=== PATIENT | female | born 1960 | race Caucasian/White ===

== ENCOUNTER 2016-12-02 07:07 | Emergency (ER) | payer OTHER ==
[~2016-12-02 07:07] MED LIST: ALBUTEROL 0.5ML INH; ALBUTEROL17 GM; ALBUTEROL17 GM INH; ALPRAZOLAM PO; AMBIEN; BLOOD PRESSURE MED; BUSPAR PO; CYANOCOBAL1000 MCG/M INJ; DARVOCET-N 1001 TA1 PO; DARVOCET-N 1001 TAB PO; FLEXERIL10 MG PO; FOLIC ACID PO; HEARTBURN RELIE75 MG; IBUPROFEN800 MG PO; IRON1 TA1; KLONOPIN0.5 MG PO; LORTAB 5/500 TA1 TA1; MEDROL4 MG/DOSE- PO; NAPROSYN250 M1 PO; NASONEX17 GM; NIFEREX-150150 MG PO; NORCO 5/325 TAB1 TAB; PAIN MED; RANITIDINE HCL150 M1 PO; ULTRAM PO; VISTARIL50 MG PO; VOLTAREN75 MG; VOLTAREN75 MG PO; ZANTAC PO; [UNRECOGNIZED DRUG - OTHER]; [UNRECOGNIZED DRUG - OTHER] PO
== END 2016-12-02 07:54 | disposition home or self-care (01) ==
LOC: SED 07:07
DX: M54.5 Low back pain (principal); G89.29 Other chronic pain; I10 Essential (primary) hypertension; J44.9 Chronic obstructive pulmonary disease, unspecified; F17.200 Nicotine dependence, unspecified, uncomplicated; Z90.49 Acquired absence of other specified parts of digestive tract; Z90.710 Acquired absence of both cervix and uterus
CPT/HCPCS: 99282